=== PATIENT | male | born 1990 | race Caucasian/White ===

== ENCOUNTER 2024-06-25 15:02 | Emergency (ER) | payer OTHER ==
[2024-06-25] MEDS ORDERED: HYDROcodone/Acetaminophen 10/325 mg Tablet ONE (19:17)
[2024-06-25] MEDS ORDERED: Ketorolac Tromethamine 30 MG (1 mL) VIAL ONE (19:17)
[2024-06-25] MEDS ORDERED: Lidocaine 1% PF 5 ML VIAL ONE (21:02)
[2024-06-25] MEDS ORDERED: Clindamycin 150 MG CAP ONE (21:58)
== END 2024-06-25 22:16 | disposition home or self-care (01) ==
LOC: ERS 15:02
DX: L02.412 Cutaneous abscess of left axilla (principal); F17.220 Nicotine dependence, chewing tobacco, uncomplicated
CPT/HCPCS: 10060; 76999; 87070; 87205; 96372; J1885